=== PATIENT | female | born 1995 | race African-American/Black ===

== ENCOUNTER 2017-01-01 08:53 | Emergency (ER) | payer OTHER ==
[~2017-01-01] VITALS: Ht 162.6 cm; Wt 54.4 kg
[2017-01-01 09:03] VITALS: BP 113/62
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
--- NOTE | 2017-01-01 09:20 | NUR ---
DR ARREGUIN AT BEDSIDE.
[2017-01-01] MEDS ORDERED: IBUPROFEN 800 MG TAB PO ONE (09:25)
--- NOTE | 2017-01-01 09:31 | NUR ---
PT WENT TO CT SCAN ACCOMPANIED BY TECH.
--- NOTE | 2017-01-01 09:41 | NUR ---
PT BACK FROM CT SCAN;NO ACUTE DISTRESS NOTED AT THIS TIME;WILL CONTINUE TO MONITOR PT.
--- NOTE | 2017-01-01 09:56 | NUR ---
PT RESTING ON BED;NO ACUTE DISTRESS NOTED;ALL MONITORS IN PLACED;WILL CONTINUE TO MONITOR PT.
--- NOTE | 2017-01-01 10:10 | NUR ---
PA AT BEDSIDE.
--- NOTE | 2017-01-01 10:18 | NUR ---
PT WENT TO XRAY ACCOMPANIED BY TECH.
--- NOTE | 2017-01-01 10:43 | NUR ---
PT SITTING ON BED;MOTHER AT BEDSIDE;NEEDS ATTENDED;ALL MONITORS IN PLACED;NO ACUTE DSITRESS NOTED;WILL CONTINUE TO MONITOR PT.
--- NOTE | 2017-01-01 10:57 | NUR ---
PT VERBALIZES DRECREASE OF PAIN;NO ACUTE DISTRESS NOTED ;ILL CONTINUE TO MONITOR PT.
--- NOTE | 2017-01-01 11:39 | NUR ---
Patient discharged with v/s stable. Written and verbal after care instructions given and explained. Patient alert, oriented and verbalized understanding of instructions. Ambulatory with to car. All questions addressed prior to discharge. ID band removed. Patient advised to follow up with PMD. Rx of MOTRIN given. Patient educated on indication of medication including possible reaction and side effects. Opportunity to ask questions provided and answered.
[2017-01-01 11:40] VITALS: BP 124/73
== END 2017-01-01 11:39 | disposition home or self-care (01) ==
LOC: MED 08:53
DX: S30.1XXA Contusion of abdominal wall, initial encounter (principal); S09.90XA Unspecified injury of head, initial encounter; V49.40XA Driver injured in collision with unspecified motor vehicles in traffic accident, initial encounter; Y93.89 Activity, other specified; Y92.488 Other paved roadways as the place of occurrence of the external cause; Y99.8 Other external cause status